=== PATIENT | male | born 1970 | race Caucasian/White ===

== ENCOUNTER 2016-08-13 09:51 | Emergency (ER) | payer OTHER ==
[~2016-08-13] VITALS: Ht 170.2 cm; Wt 60.0 kg
[~2016-08-13 09:51] MED LIST: HYDROCODON-ACE1 EAC7 PO; KEPPRA1000 MG PO; KEPPRA500 MG PO; NICOTINE PATCH1 EAC2 TD; OXCARBAZEPINE150 MG PO; PERCOCET 5/31 TABLET PO; ROXICODONE5 MG PO; TRILEPTAL150 MG PO; ZONISAMIDE100 MG PO
[2016-08-13 10:36] LABS: HEMATOCRIT 44.6 % (38.0-50.0); MCH 34.7 PG (29.0-34.0); MCHC 33.4 G/DL (30.0-36.0); MEAN PLAT.VOLUME 9.9 uM^3 (9.0-12.4); PLATELET COUNT 291 K/uL (156-360); RBC DIS.WIDTH-CV 13.3 % (11.8-14.6); RBC DIS.WIDTH-SD 51.3 % (39-53); RED BLOOD COUNT 4.29 M/uL (4.00-5.50); WHITE BLOOD COUNT 9.6 K/uL (4.1-10.2)
[2016-08-13 11:37] LABS: CHLORIDE 105 mEq/L (99-109); POTASSIUM 4.3 mEq/L (3.7-5.4)
[2016-08-13 11:38] LABS: SODIUM 137 mEq/L (136-147)
[2016-08-13 11:39] LABS: GLUCOSE 93 mg/dL (70-99)
[2016-08-13 11:41] LABS: ANION GAP 8 MEQ/L (2-14)
[2016-08-13 11:43] LABS: GFR ESTIMATE (CALCULATED) > 59 mL/min/
[2016-08-13 11:44] LABS: UREA NITROGEN (BUN) 12 mg/dL (9-23)
[2016-08-13] MEDS ORDERED: TRILEPTAL300 MG PO (11:57)
[2016-08-13 12:50] VITALS: BP 95/63
== END 2016-08-13 12:50 | disposition home or self-care (01) ==
LOC: EME 09:51
PROVIDERS: Physician Assistant Medical
DX: G40.909 Epilepsy, unspecified, not intractable, without status epilepticus (principal); Z87.442 Personal history of urinary calculi; F17.200 Nicotine dependence, unspecified, uncomplicated
CPT/HCPCS: 80048; 81003; 85027; 99281; 99285; J1953; J2060; J7050